=== PATIENT | female | born 1975 | race Caucasian/White ===

== ENCOUNTER 2018-12-21 08:24 | Observation (INO) | payer BC, OTHER ==
--- OUTSIDE RECORDS SUMMARY | 2018-12-21 08:28 | XMS REPORT | Clinical Summary ---
:1975 Author Organization [facility] Address [address] [place] [address] Care Team Providers Name Role Phone Osiel Ward MD Primary Care Provider Allergies Active Allergy Reactions Severity Noted Date Comments Penicillins Rash Low 06/23/2016 Medications Medication Sig Dispensed Refills Start Date End Date Status prasterone, dhea, Take 15 mg by 0 Active 25 mg capsule mouth. VITAMIN B COMPLEX Take by 0 Active ORAL mouth. famotidine (PEPCID) Take 1 tablet 60 tablet 3 06/01/2018 Active 40 MG tablet (40 mg total) by mouth 2 (two) times a day. pantoprazole Take 1 tablet 42 tablet 3 11/18/2018 12/30/2018 Active (PROTONIX) 40 MG EC (40 mg total) tablet by mouth daily for 42 days. thyroid, pork, Take 32.5 mg 0 11/15/2018 Discontinued (NATURE-THROID) by mouth 32.5 mg tablet daily. sodium,potassium,ma Take 1 Bottle 1 Bottle 0 10/18/2018 10/18/2018 g sulfates (SUPREP by mouth once BOWEL PREP KIT) for 1 dose. 17.5-3.13-1.6 gram recon soln Active Problems Problem Noted Date Gastroesophageal reflux disease without esophagitis 08/19/2017 Epigastric pain 08/19/2017 Swelling of both hands 06/23/2016 Encounter for long-term (current) use of non-steroidal anti-inflammatories 03/2016 ADD (attention deficit disorder) Encounters Date Type Specialty Care Team Description 11/30/2018 Telephone Gastroenterology Ottoniel Segura LVN 11/18/2018 Orders Only Gastroenterology Bari Corea MD 11/16/2018 Surgery Gastroenterology Bari Corea, EGD with cold forcep biopsies 11/16/2018 Anesthesia Event Gastroenterology [facility], Fuad Mcmanus MD 11/16/2018 Hospital Encounter Gastroenterology Bari Corea, Encounter for MD long-term (current) use of non-steroidal anti-inflammatories (Primary Dx) 10/18/2018 Orders Only Gastroenterology Ottoniel Segura LVN 10/18/2018 Telephone GastroenterBari Collins MD 10/06/2018 Telephone GastroenterBari Collins MD 09/27/2018 Telephone Gastroenterology Ottoniel Segura LVN 06/21/2018 Hospital Encounter Radiology Roney Mullen Breast ramesh Iyer MD 06/21/2018 Hospital Encounter Radiology Roney Mullen MD 06/01/2018 Office Visit Otolaryngology Shelley Sears Sore throat; MD Tez Localized swelling, mass and lump, head 04/13/2018 Transcribe Orders Access Roney Mullen MD (Primary Dx) after 12/20/2017 Family History Medical History Relation Name Comments Diabetes Father Hypercalcemia Mother Lupus Mother No Known Problems Sister Relation Name Status Comments Father Mother Alive Sister Alive Social History Tobacco Use Types Packs/Day Years Used Date Never Smoker Smokeless Tobacco: Never Used Alcohol Use Drinks/Week oz/Week Comments Yes social Sex Assigned at Date Recorded Not on file Job Start Date Occupation Industry Not on file Not on file Not on file Travel History Travel Start Travel End No recent travel history available. Last Filed Vital Signs Vital Sign Reading Time Taken Blood Pressure 117/72 11/16/2018 9:08 AM CDT Pulse 72 11/16/2018 9:08 AM CDT Temperature 36.8 C (98.2 F) 11/16/2018 9:08 AM CDT Respiratory Rate 18 11/16/2018 9:08 AM CDT Oxygen Saturation 98% 11/16/2018 9:08 AM CDT Inhaled Oxygen Concentration - - Weight 62.6 kg (138 lb) 06/01/2018 8:10 AM CDT Height 167.6 cm (5' 6") 06/01/2018 8:10 AM CDT Body Mass Index 22.27 06/01/2018 8:10 AM CDT Plan of Treatment Date Type Specialty Care Team Description 01/05/2019 Office Visit Gastroenterology Bari Corea MD [id number] [place] [address] Health Maintenance Due Date Last Done Comments CERVICAL CANCER SCREENING 1995 INFLUENZA VACCINE 03/16/2019 Procedures Procedure Name Priority Date/Time Associated Comments Diagnosis SURGICAL PATHOLOGY REQUEST Routine 11/16/2018 Results for 9:15 AM CDT this procedure are in the results section. COLONOSCOPY 11/16/2018 Colon cancer 8:00 AM CDT screening Gastric reflux ESOPHAGOGASTRODUODENOSCOPY (EGD) 11/16/2018 Colon cancer 8:00 AM CDT screening Gastric reflux US BREAST COMPLETE BILATERAL Routine 06/21/2018 Breast density Results for 11:08 AM MARBLE CARVER this procedure are in the results section. MAMMO BREAST DIAGNOSTIC Routine 06/21/2018 Breast density Results for TOMOSYNTHESIS BILATERAL 10:23 AM MARBLE CARVER this procedure are in the results section. after 12/20/2017 Results Surgical pathology request (11/16/2018 9:15 AM CDT) [facility] DEPARTMENT OF PATHOLOGY AND GENOMIC MEDICINE Surgical pathology report See link below for PDF [facility] DEPARTMENT OF Lab Report PATHOLOGY AND GENOMIC MEDICINE Result status This is Final Report [facility] DEPARTMENT OF for [id number] PATHOLOGY AND GENOMIC MEDICINE Performing Organization Address City/State/Zipcode Phone Number [facility] DEPARTMENT OF PATHOLOGY AND [address] [place] [address] GENOMIC MEDICINE US Breast Complete Bilateral (06/21/2018 11:08 AM MARBLE CARVER) Narrative Performed At PROCEDURE: MAMMO BREAST DIAGNOSTIC TOMOSYNTHESIS BILATERAL, US BREAST HM RADIANT COMPLETE BILATERAL Bilateral real-time whole breast sonography included all four quadrants and the retroareolar regions under close supervision by the radiologist. Computer aided detection with tomosynthesis was utilized for the interpretation. HISTORY:43-year-old female with fibrocystic breast presenting for annual evaluation. She has a history of a benign breast biopsy. COMPARISON: 06/22/2017-06/21/2014. DENSITY: There are scattered areas of fibroglandular density. MAMMOGRAM: Bilateral subpectoral saline implants are present and they obscure portions of the breast parenchyma. There are bilateral benign calcifications in both breasts. Bilateral obscured masses of variable sizes are also noted and likely represent multiple cysts. No significant asymmetry or architectural distortion is identified in either breast. ULTRASOUND: There are scattered anechoic masses of variable sizes in both breasts which are all in keeping with fibrocystic changes. No suspicious mass or acoustic abnormality is identified in either breast. IMPRESSION:No mammographic or sonographic evidence of malignancy. RECOMMENDATION: Correlation with physical exam and annual mammography. BI-RADS 2: BENIGN DWS01 Performing Organization Address [facility] Phone Number [facility] [address] [place] [address] Mammo Breast Diagnostic Tomosynthesis Bilateral (06/21/2018 10:23 AM MARBLE CARVER) Narrative Performed At PROCEDURE: MAMMO BREAST DIAGNOSTIC TOMOSYNTHESIS BILATERAL, US BREAST RADIANT COMPLETE BILATERAL Bilateral real-time whole breast sonography included all four quadrants and the retroareolar regions under close supervision by the radiologist. Computer aided detection with tomosynthesis was utilized for the interpretation. HISTORY:43-year-old female with fibrocystic breast presenting for annual evaluation. She has a history of a benign breast biopsy. COMPARISON: 06/22/2017-06/21/2014. DENSITY: There are scattered areas of fibroglandular density. MAMMOGRAM: Bilateral subpectoral saline implants are present and they obscure portions of the breast parenchyma. There are bilateral benign calcifications in both breasts. Bilateral obscured masses of variable sizes are also noted and likely represent multiple cysts. No significant asymmetry or architectural distortion is identified in either breast. ULTRASOUND: There are scattered anechoic masses of variable sizes in both breasts which are all in keeping with fibrocystic changes. No suspicious mass or acoustic abnormality is identified in either breast. IMPRESSION:No mammographic or sonographic evidence of malignancy. RECOMMENDATION: Correlation with physical exam and annual mammography. BI-RADS 2: BENIGN DWS01 Performing Organization Address [facility] Phone Number [facility] [address] [place] [address] after 12/20/2017 Insurance Payer Benefit Plan / Group Subscriber ID Type Phone Address [employer] ALLIED/[employer] SIG ADMIN xxxxxxxxx PPO Advance Directives Patient has advance care planning documents on file. For more information, please contact:Alessio Aguilera[address] [place] [address]
[2018-12-21] MEDS ORDERED: ONDANSETRON 4 MG/2 ML VIAL ONE ×2 (09:01→14:21)
[2018-12-21] MEDS ORDERED: MORPHINE 4 MG/ML SYR ONE (09:01)
[2018-12-21] MEDS ORDERED: FAMOTIDINE 20 MG/2 ML VIAL IV ONE (09:02)
[2018-12-21] MEDS ORDERED: NA CHLORIDE 0.9% 1,000 ML ONE (09:02)
[2018-12-21 09:26] LABS: Absolute Lymphocytes (CBC) 2.5 K/uL (0.7-4.9); Absolute Monocytes 0.5 K/uL (0.1-1.3); Absolute Neutrophil 2.3 K/uL (1.8-8.0); Basophils % 1.2 % (0-1.3); Eosinophils % 5.3 % (0-4.4); Hematocrit 42.3 % (36.0-45.0); Lymphocytes % 44.2 % (15.3-44.8); MPV 8.1 fL (7.6-11.3); Monocytes % 8.4 % (3.3-12.3); RBC Red Blood Cell Count 4.65 M/uL (3.86-4.86)
[2018-12-21 09:43] LABS: Bilirubin Direct 0.1 mg/dL (0-0.2); Bilirubin Total 0.4 mg/dL (0.2-1.0); Protein, Total 7.3 g/dL (6.4-8.2)
[2018-12-21] MEDS ORDERED: HYDROMORPHONE HCL 1 MG/ML INJ ONE ×2 (09:43→11:09)
[2018-12-21] MEDS ORDERED: PROMETHAZINE 25 MG/ML VIAL ONE (09:43)
[2018-12-21 10:07] LABS: Blood Morphology Comment NOT SEEN (NOT SEEN); Platelet Estimate ADEQ
--- NOTE | 2018-12-21 11:20 | RAD REPORT ---
EXAM DESCRIPTION: RAD - Chest Single View - 12/21/2018 11:10 am CLINICAL HISTORY: Abdominal pain, epigastric pain COMPARISON: None. TECHNIQUE: AP portable chest image was obtained 1108 hours . FINDINGS: Lungs are clear. Heart and vasculature are normal. No measurable pleural effusion and no p neumothorax. No acute bony abnormality seen. No acute aortic finding. No free air under the diaphragm . IMPRESSION: No acute cardiopulmonary process.
[2018-12-21] MEDS ORDERED: PROPOFOL 200 MG/20 ML VIAL IV ONE (12:07)
[2018-12-21] MEDS ORDERED: LIDOCAINE 1% MPF 2 ML AMPULE ONE (12:07)
[2018-12-21] MEDS ORDERED: Ringers Lactate 1,000 ML IV ONE (12:10)
--- NOTE | 2018-12-21 12:53 | ENDO RPT ---
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 pylori MEDICATIONS: Per Anesthesia. TOPICAL ANESTHETIC: none CONSENT: The patient understands the risks and benefits of the procedure and understands that these risks include, but are not limited to: sedation, allergic reaction, infection, perforation and/or bleeding. Alternative means of evaluation and treatment include, among others: physical exam, x-rays, and/or surgical intervention. The patient elects to proceed with this endoscopic procedure. DESCRIPTION OF PROCEDURE: During intra-op preparation period all mechanical medical equipment was checked for proper function. Hand hygiene and appropriate measures for infection prevention was taken. Procedure, possible complications, and alternatives including but not limited to the possibility of bleeding, perforation, tear, infection, sepsis, need for surgery, need for blood transfusion, and anesthesia related complications were explained to the patient. After the risks, benefits and alternatives of the procedure were thoroughly explained, Informed consent was verified, confirmed and timeout was successfully executed by the treatment team. The patient was placed in the left lateral position. The patient was anesthetized with topical anesthesia. Through the anesthetized oropharyngeal area, the scope was passed without any difficulty. The [id number] ([id number]) endoscope was introduced through the mouth and advanced to the third portion of the duodenum. Retroflexed views revealed sessile polyp(s). The gastroscope was then slowly withdrawn and removed. There was diffuse mild gastritis noted over the enitre stomach, most severe at the pylorus. Additionally an erosion was found at the pylorus. A biopsy for H. pylori was taken from multiple areas of the stomach including the pylorus, body, fundus of the stomach, as well as several duodenal biopsies from the bulb and second portions of the duodenum. Bile reflux was found in the total stomach. Eosinophilic esophagitis was also noted. A sessile polyp was found in the fundus of the stomach it was a bile-covered fleshy polyp and was removed and sent for pathology. ADVERSE EVENTS: There were no complications. IMPRESSIONS: 1. An erosion was found at the pylorus 2. Bile reflux was found in the total stomach 3. Eosinophilic esophagitis 4. A sessile polyp was found in the fundus RECOMMENDATIONS: 1. acid suppression therapy, Omeprazole 40mg PO BID 2. anti-reflux regimen - GERD handout given 3. await biopsy results 4. avoid NSAIDS 5. follow-up: office 2 week(s) 6. admit to hospital 7. CT scan 8. follow-up of helicobacter pylori status, treat if indicated REPEAT EXAM: Return in 1 year(s) for EGD. Pending Biopsy Christiano Roberts DR eSigned: Christiano Roberts DR 12/21/2018 12:52 PM cc: CPT CODES: ICD9 CODES: PATIENT NAME: Chante Elder MR#: [id number]
[2018-12-21] MEDS ORDERED: SODIUM CHLORIDE 0.9% 10ML INJ IV PRN ×2 (13:09→22:04)
[2018-12-21] MEDS ORDERED: HYDROMORPHONE HCL 1 MG/ML INJ IV PRN ×2 (13:09→15:26)
[2018-12-21] MEDS ORDERED: ONDANSETRON 4 MG/2 ML VIAL IV PRN ×2 (13:09→15:26)
[2018-12-21 13:11] LABS: Urine Blood NEGATIVE (NEG); Urine Glucose NEGATIVE (NEG); Urine Protein NEGATIVE (NEG); Urine pH 5.5 (5.0-7.0)
--- NOTE | 2018-12-21 13:11 | ER ---
Nurse's Notes [facility] Name: Chante Elder Age: 43 yrs Sex: Female : 1975 Arrival Date: 12/21/2018 Time: 08:26 Bed 13 Private MD: Diagnosis: Abdominal and pelvic pain;Gastritis, unspecified Presentation: 12/21 08:36 Presenting complaint: Patient states: Epigastric pain that began Wednesday, also reports ph nausea, denies V/D or fever, gallbladder removed in 2012. Transition of care: patient was not received from another setting of care. Onset of symptoms was December 21, 2018. Risk Assessment: Do you want to hurt yourself or someone else? Patient reports no desire to harm self or others. Initial Sepsis Screen: Does the patient meet any 2 criteria? No. Patient's initial sepsis screen is negative. Does the patient have a suspected source of infection? No. Patient's initial sepsis screen is negative. Care prior to arrival: None. 08:36 Method Of Arrival: Ambulatory ph 08:36 Acuity: KEYONNA 3 ph COLLATERAL ANALYST: 08:40 LMP 12/07/2018 ph Historical: - Allergies: 08:39 PENICILLINS; ph 08:39 Adhesives; ph - Home Meds: 08:39 pantoprazole oral oral [Active]; ph - PSHx: 08:39 Cholecystectomy; Hernia repair; ph - Immunization history:: Adult Immunizations unknown. - Social history:: Smoking status: Patient/guardian denies using tobacco. - Ebola Screening: : No symptoms or risks identified at this time. Screenin:41 Abuse screen: Denies threats or abuse. Denies injuries from another. Nutritional ph screening: No deficits noted. Tuberculosis screening: No symptoms or risk factors identified. Fall Risk None identified. Assessment: 09:15 General: Appears in no apparent distress. uncomfortable, slender, well groomed, ph Behavior is calm, cooperative, appropriate for age, Denies fever. Pain: Complains of pain in abdomen Pain currently is 10 out of 10 on a pain scale. Quality of pain is described as squeezing, Pain began 2-3 days ago. Noted to be grimacing, guarding. Neuro: Level of Consciousness is awake, alert, obeys commands, Oriented to person, place, time, situation. Cardiovascular: Capillary refill < 3 seconds in bilateral fingers Patient's skin is warm and dry. Respiratory: Airway is patent Respiratory effort is even, unlabored, Respiratory pattern is regular, symmetrical. 09:15 GI: Abdomen is flat, non-distended, Bowel sounds present X 4 quads. Abd is soft X 4 ph quads Abdomen is tender to palpation in right lower quadrant Reports lower abdominal pain, upper abdominal pain, epigastric pain, nausea, Patient currently denies bloody stool, constipation, diarrhea, vomiting. : No signs and/or symptoms were reported regarding the genitourinary system. Derm: Skin is intact, is healthy with good turgor, Skin is pink, warm \T\ dry. Musculoskeletal: Circulation, motion, and sensation intact. Range of motion: intact in all extremities. 09:44 Reassessment: Patient appears in no apparent distress at this time. Patient and/or ph family updated on plan of care and expected duration. Pain level reassessed. Patient is alert, oriented x 3, equal unlabored respirations, skin warm/dry/pink. Pt reports that pain and nausea have not improved, ERP notified, see Dr Armando KITCHEN at bedside to speak w/ pt. 10:00 Reassessment: Patient reports that her pain has improved since administration of aj1 Dilaudid. Patient was instructed to notify staff if her pain returns. 10:15 Reassessment: Dr. Roberts at bedside. aj1 11:00 Reassessment: Patient states that her pain is getting worse, notified Dr. Styles, aj1 order received. 11:05 Reassessment: Patient transported to X-Ray via wheelchair. aj1 11:15 Reassessment: Patient returned to room. aj1 11:23 Reassessment: Spoke with nurse from Endoscopy, states they will be coming in aj1 approximately 10 minutes to get patient. Patient was instructed to change into hospital gown as preparation for endoscopy. 11:40 Reassessment: Patient transported to endoscopy via wheelchair per Dr. Styles patient aj1 may be brought back to ER following endoscopy, will continue to hold room 13 for patient. 14:12 Reassessment: Pt to stay in day surgery as bed has been assigned of 230. House ss Machine Bookkeeper, and Day Surgery staff notified. Vital Signs: 08:40 Weight 64.86 kg; Height 5 ft. 6 in. (167.64 cm); Pain 10/10; ph 08:46 BP 124 / 86; Pulse 66; Resp 18; Temp 98.3; Pulse Ox 97% on R/A; ph 09:18 BP 122 / 84; Pulse 69; Resp 18; Pulse Ox 100% on R/A; ph 10:52 BP 116 / 77; Pulse 58; Resp 12; Temp 98.0(O); Pulse Ox 98% ; mh5 11:30 BP 116 / 65; Pulse 68; Resp 18; Pulse Ox 100% ; aj1 08:40 Body Mass Index 23.08 (64.86 kg, 167.64 cm) ph ED Course: 08:26 Patient arrived in ED. as 08:31 Aspen Smart, MARY is Primary Nurse. ph 08:33 Marty Styles MD is Attending Physician. kdr 08:38 Triage completed. ph 08:41 Arm band placed on. ph 08:41 Patient has correct armband on for positive identification. Placed in gown. Bed in low ph position. Call light in reach. Side rails up X 1. Pulse ox on. NIBP on. Door closed. Noise minimized. Warm blanket given. Pillow given. 09:00 Initial lab(s) drawn, by me, sent to lab. Inserted saline lock: 22 gauge in right ph antecubital area, using aseptic technique. Blood collected. 10:31 Radiology exam delayed due to on hold. pt going to endo first and may or may noit get sj the scan. 11:09 CXR XRAY In Process Unspecified. EDMS 13:10 Christiano Roberts MD is Hospitalizing Provider. kdr Administered Medications: 09:05 Drug: NS 0.9% 1000 ml Route: IV; Rate: 1 bolus; Site: right antecubital; ph 09:05 Drug: Zofran 4 mg Route: IVP; Site: right antecubital; ph 09:43 Follow up: Response: No adverse reaction; Nausea unchanged ph 09:07 Drug: morphine 4 mg Route: IVP; Site: right antecubital; ph 09:43 Follow up: Response: No adverse reaction; Pain is unchanged, physician notified ph 09:08 Drug: Pepcid 20 mg Route: IVP; Site: right antecubital; ph 09:44 Follow up: Response: No adverse reaction ph 09:40 Drug: Phenergan 12.5 mg Route: IVP; Site: right antecubital; ph 10:15 Follow up: Response: No adverse reaction; Nausea is decreased ph 09:43 Drug: Dilaudid 1 mg Route: IVP; Site: right antecubital; ph 10:15 Follow up: Response: No adverse reaction; Pain is decreased ph 10:59 Drug: Dilaudid 1 mg Route: IVP; Site: right antecubital; aj1 Outcome: 13:11 Decision to Hospitalize by Provider. kdr 14:12 Patient left the ED. ss Signatures: Dispatcher [employer] EDAminah Mcallister RN RN aj1 Marty Styles MD MD kdr Jones, Susan sj Martinez, Amelia as Smirch, Shelby, RN RN Aspen Smart RN RN [address] [phone]
--- NOTE | 2018-12-21 13:12 | EDPHYS ---
Physician Documentation [facility] Name: Chante Elder Age: 43 yrs Sex: Female : 1975 Arrival Date: 12/21/2018 Time: 08:26 Bed 13 Private MD: ED Physician Marty Styles HPI: 12/21 08:44 This 43 yrs old Female presents to ER via Ambulatory with complaints of kdr Abdominal Pain. 08:44 The patient presents with abdominal pain that is diffuse, subjectively epigastric, kdr objectively RLQ abdominal distention in the lower abdomen. Onset: The symptoms/episode began/occurred Wednesday. The symptoms radiate to The patient states that she feels like the pain radiates from under her umbilicus to both flanks/CVA area. Associated signs and symptoms: Pertinent positives: nausea, Pertinent negatives: chest pain, constipation, diarrhea, headache, hematuria, palpitations, shortness of breath, vaginal discharge. The symptoms are described as achy, intermittent, vague, waxing/waning. Modifying factors: The symptoms are alleviated by nothing, Sitting up feel better or laying on her side. the symptoms are aggravated by movement. Severity of pain: At its worst the pain was moderate in the emergency department the pain is unchanged. The patient has not experienced similar symptoms in the past, Had her GB out about a year ago and but she does not recall if her pain was like this prior to GB removal. 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 - Social history:: Smoking status: Patient/guardian denies using tobacco. - Ebola Screening: : No symptoms or risks identified at this time. ROS: 08:44 Constitutional: Negative for fever, chills, and weight loss, Eyes: Negative for injury, kdr pain, redness, and discharge, Neck: Negative for injury, pain, and swelling, Cardiovascular: Negative for chest pain, palpitations, and edema, Respiratory: Negative for shortness of breath, cough, wheezing, and pleuritic chest pain, Back: Negative for injury and pain, : Negative for injury, bleeding, discharge, and swelling, MS/Extremity: Negative for injury and deformity, Skin: Negative for injury, rash, and discoloration, Neuro: Negative for headache, weakness, numbness, tingling, and seizure activity. Psych: Negative for depression, anxiety, suicide ideation, homicidal ideation, and hallucinations, Allergy/Immunology: Negative for hives, rash, and allergies, Endocrine: Negative for neck swelling, polydipsia, polyuria, polyphagia, and marked weight changes, Hematologic/Lymphatic: Negative for swollen nodes, abnormal bleeding, and unusual bruising. 08:44 Abdomen/GI: Positive for abdominal pain, nausea, abdominal distension, Subjective distention in her lower abdomen, Negative for constipation, abdominal cramps, black/tarry stool, rectal pain, rectal bleeding, bowel incontinence. Exam: 08:44 Constitutional: This is a well developed, well nourished patient who is awake, alert, kdr and in no acute distress. Head/Face: Normocephalic, atraumatic. Eyes: Pupils equal round and reactive to light, extra-ocular motions intact. Lids and lashes normal. Conjunctiva and sclera are non-icteric and not injected. Cornea within normal limits. Periorbital areas with no swelling, redness, or edema. Neck: Trachea midline, no thyromegaly or masses palpated, and no cervical lymphadenopathy. Supple, full range of motion without nuchal rigidity, or vertebral point tenderness. No Meningismus. Chest/axilla: Normal chest wall appearance and motion. Nontender with no deformity. No lesions are appreciated. Cardiovascular: Regular rate and rhythm with a normal S1 and S2. No gallops, murmurs, or rubs. Normal PMI, no JVD. No pulse deficits. Respiratory: Lungs have equal breath sounds bilaterally, clear to auscultation and percussion. No rales, rhonchi or wheezes noted. No increased work of breathing, no retractions or nasal flaring. Back: No spinal tenderness. No costovertebral tenderness. Full range of motion. Skin: Warm, dry with normal turgor. Normal color with no rashes, no lesions, and no evidence of cellulitis. MS/ Extremity: Pulses equal, no cyanosis. Neurovascular intact. Full, normal range of motion. Neuro: Awake and alert, GCS 15, oriented to person, place, time, and situation. Cranial nerves II-XII grossly intact. Motor strength 5/5 in all extremities. Sensory grossly intact. Cerebellar exam normal. Normal gait. Psych: Awake, alert, with orientation to person, place and time. Behavior, mood, and affect are within normal limits. 08:44 Abdomen/GI: Inspection: abdomen appears normal, Bowel sounds: normal, Palpation: soft, mild abdominal tenderness, in the right lower quadrant, diffusely tender but worse with palpation to RLQ. Vital Signs: 08:40 Weight 64.86 kg; Height 5 ft. 6 in. (167.64 cm); Pain 10/10; ph 08:46 BP 124 / 86; Pulse 66; Resp 18; Temp 98.3; Pulse Ox 97% on R/A; ph 09:18 BP 122 / 84; Pulse 69; Resp 18; Pulse Ox 100% on R/A; ph 10:52 BP 116 / 77; Pulse 58; Resp 12; Temp 98.0(O); Pulse Ox 98% ; mh5 11:30 BP 116 / 65; Pulse 68; Resp 18; Pulse Ox 100% ; aj1 08:40 Body Mass Index 23.08 (64.86 kg, 167.64 cm) ph MDM: 08:44 Data reviewed: vital signs, nurses notes, lab test result(s), radiologic studies. kdr Counseling: I had a detailed discussion with the patient and/or guardian regarding: the historical points, exam findings, and any diagnostic results supporting the discharge/admit diagnosis, lab results, radiology results. 13:11 Patient medically screened. kdr 12/21 08:43 Order name: Basic Metabolic Panel kdr 12/21 08:43 Order name: CBC with Diff; Complete Time: 10:38 kdr 12/21 08:43 Order name: Creatinine for Radiology; Complete Time: 10:05 kdr 12/21 08:43 Order name: Hepatic Function; Complete Time: 10:05 kdr 12/21 08:43 Order name: Lipase; Complete Time: 10:05 kdr 12/21 08:44 Order name: Basic Metabolic Panel; Complete Time: 10:05 EDMS 12/21 08:43 Order name: CT Abd/Pelvis - W/Contrast kdr 12/21 10:07 Order name: Manual Differential; Complete Time: 10:38 EDMS 12/21 10:12 Order name: CXR XRAY bd 12/21 10:31 Order name: Urine Dipstick--Ancillary (enter results) bd 12/21 10:31 Order name: Urine --Ancillary (enter results) bd 12/21 08:43 Order name: IV Saline Lock; Complete Time: 09:14 kdr 12/21 08:43 Order name: Labs collected and sent; Complete Time: 09:14 kdr 12/21 13:14 Order name: Clear Liquid EDMS Administered Medications: 09:05 Drug: NS 0.9% 1000 ml Route: IV; Rate: 1 bolus; Site: right antecubital; ph 09:05 Drug: Zofran 4 mg Route: IVP; Site: right antecubital; ph 09:43 Follow up: Response: No adverse reaction; Nausea unchanged ph 09:07 Drug: morphine 4 mg Route: IVP; Site: right antecubital; ph 09:43 Follow up: Response: No adverse reaction; Pain is unchanged, physician notified ph 09:08 Drug: Pepcid 20 mg Route: IVP; Site: right antecubital; ph 09:44 Follow up: Response: No adverse reaction ph 09:40 Drug: Phenergan 12.5 mg Route: IVP; Site: right antecubital; ph 10:15 Follow up: Response: No adverse reaction; Nausea is decreased ph 09:43 Drug: Dilaudid 1 mg Route: IVP; Site: right antecubital; ph 10:15 Follow up: Response: No adverse reaction; Pain is decreased ph 10:59 Drug: Dilaudid 1 mg Route: IVP; Site: right antecubital; aj1 Disposition: 12/21/18 13:11 Hospitalization ordered by Christiano Roberts for Observation. Preliminary diagnosis are Abdominal and pelvic pain, Gastritis, unspecified. - Bed requested for Telemetry/MedSurg (observation). - Status is Observation. ss - Condition is Fair. - Problem is new. - Symptoms have improved. UTI on Admission? No Signatures: Dispatcher [employer] EDMS Aminah Jeronimo RN RN aj1 Marty Styles MD MD kdr Smirch, Shelby, RN RN ss Aspen Smart RN RN ph Corrections: (The following items were deleted from the chart) 13:48 13:11 Hospitalization Ordered by Christiano Roberts MD for Observation. Preliminary diagnosis ss is Abdominal and pelvic pain; Gastritis, unspecified. Bed requested for Telemetry/MedSurg (observation). Status is Observation. Condition is Fair. Problem is new. Symptoms have improved. UTI on Admission? No. kdr 14:12 13:48 12/21/2018 13:11 Hospitalization Ordered by Christiano Roberts MD for Observation. ss Preliminary diagnosis is Abdominal and pelvic pain; Gastritis, unspecified. Bed requested for Telemetry/MedSurg (observation). Status is Observation. Condition is Fair. Problem is new. Symptoms have improved. UTI on Admission? No. ss
[2018-12-21] MEDS ORDERED: MEPERIDINE HCL 25 MG/0.5 ML ONE ×2 (13:29→14:16)
[2018-12-21] MEDS ORDERED: Ringers Lactate 1,000 ML IV SCH (14:00)
--- NOTE | 2018-12-21 14:51 | RAD REPORT ---
EXAM DESCRIPTION: CT - Abdomen Pelvis W Contrast - 12/21/2018 2:35 pm CLINICAL HISTORY: Abdominal pain. COMPARISON: 2015 TECHNIQUE: Computed axial tomography of the abdomen and pelvis was obtained. 100 cc Isovue-300 is ad ministered intravenously. Oral contrast was given. All CT scans are performed using dose optimization technique as appropriate and may include automated exposure control or mA/KV adjustment according to patient size. FINDINGS: The liver, spleen, pancreas, adrenals and kidneys appear unremarkable. Borderline dilatation of several loops of jejunum. . There is no evidence of diverticulitis Swirling of the mesenteric vessels has developed since 2015. There is stranding within the adjacent m esenteric fat. IMPRESSION: Swirling of the mesenteric vessels with stranding within the adjacent fat. This is a no nspecific finding but can be seen with a volvulus. There is borderline dilatation of small bowel loop s with small amount of ascites
[2018-12-21 15:04] VITALS: BMI 24.0
[2018-12-21] MEDS ORDERED: ENOXAPARIN 40 MG/0.4 ML SQ ONE (15:31)
[2018-12-21] MEDS: Ringers Lactate 1,000 ML IV SCH (15:43)
[2018-12-21] MEDS ORDERED: HYDROMORPHONE HCL 2 MG/ML inj IV PRN (17:58)
[2018-12-21] MEDS: HYDROMORPHONE HCL 2 MG/ML inj IV PRN (18:21)
[2018-12-21] MEDS ORDERED: PANTOPRAZOLE 40 MG INJ IVP SCH (21:00)
--- NOTE | 2018-12-21 21:49 | HP ---
Date of Admission: 12/21/2018 Brief History Of Present Illness: The patient is a 43-year-old female known to me from previous cholecystectomy approximately 4 years ago, who presents to the hospital with a 2-3 day history of epigastric abdominal pain. She states it was typically after 1 hour after meals, which has been getting progressively worse over the course of the past 3-4 days. It was initially intermittent and postprandial as described. It was sharp, stabbing with radiation through to the back and a boring type sensation. It was associated with nausea, vomiting on occasion, but no change in bowel or bladder habits. She has had decreased output of stool; however, she continues to have normal bowel movements. She has noted some bloating in her abdomen following this and the pain now got significant to almost an 8-10/10 in the epigastric region. She has had no fever , chills. She noted that she does not take any NSAIDs [id number] except ibuprofen intermittently. She drinks very sparsely when it comes to alcohol consumption. She does drink carbonated liquids every day in high volume, typically a mineral water type drink. Past Medical History: B vitamin deficiency. Past Surgical History: She has had 2 umbilical hernia repairs, laparoscopic cholecystectomy, laparoscopic appendectomy and a uterine ablation. Allergies: TO PENICILLIN AND ADHESIVES. Home Medications: Include PPI. Endoscopic History: The patient has had an EGD on 11/16 of this year, which showed gastritis and gastric erosions as well as eosinophilic esophagitis. She was placed on a PPI 40 mg p.o. daily of omeprazole, which she has been taking for the most part, but had not taken it on occasion. She states the H. pylori test was negative at that time. She also had a colonoscopy performed as well due to change in bowel habit. Review of Systems: A 10-point review of systems other than HPI, denies. Physical Examination: General: At the time of my examination, she is awake, alert, and oriented. Psychiatric: She is appropriate, conversive. HEENT: She is normocephalic. Sclerae anicteric. Mucous membranes are moist. Oropharynx clear. Neck: Supple. No JVD. Chest: Normal expansion and excursion. Cardiovascular: Regular rhythm. Pulmonary: Clear to auscultation bilaterally. Abdomen: Soft with positive epigastric tenderness to palpation. No rebound. No guarding. No focal peritonitis. She has global tenderness to palpation, worse in the epigastrium in the left lower quadrant. Well-healed scars are evident. No hernias appreciated. Extremities: No clubbing, cyanosis, or edema. Skin: Warm and dry. Laboratory Data: White blood cell count of 5.6, hemoglobin is 14.2, hematocrit of 42.3, platelet count is 271, neutrophils 40%. Her sodium 142, potassium 4.0 , chloride 110, carbon dioxide 25, BUN 21, creatinine 0.7, glucose is 101, calcium is 8.9. Total bilirubin 0.4, direct component 0.1, AST 16, ALT 23, alkaline phosphatase is 45, lipase is 140. UA is currently pending. She has not had imaging performed. Assessment And Plan: This is a 43-year-old female, who comes in with significant epigastric abdominal pain. 1. Intravenous fluid hydration. 2. I have explained the risks, benefits, and alternatives of repeat esophagogastroduodenoscopy including but not limited to bleeding, infection, damage to surrounding tissues, perforation, need for further operation and procedures. The patient agrees to proceed as indicated. 3. Will obtain CT scan of abdomen and pelvis if EGD does not give definitive diagnosis. MANUEL/GALEN Voice ID: [id number] MTDD
[2018-12-21] MEDS: PANTOPRAZOLE 40 MG INJ IVP SCH (22:40)
[2018-12-22] MEDS ORDERED: PROMETHAZINE 25 MG/ML VIAL IV PRN (00:19)
[2018-12-22] MEDS: HYDROMORPHONE HCL 2 MG/ML inj IV PRN (00:57)
[2018-12-22] MEDS: Ringers Lactate 1,000 ML IV SCH ×3 (01:01→16:00)
[2018-12-22 01:46] VITALS: O2SAT 96
[2018-12-22 05:50] LABS: Absolute Lymphocytes (CBC) 1.5 K/uL (0.7-4.9); Absolute Monocytes 0.3 K/uL (0.1-1.3); Absolute Neutrophil 6.5 K/uL (1.8-8.0); Basophils % 0.5 % (0-1.3); Eosinophils % 0.1 % (0-4.4); Hematocrit 35.6 % (36.0-45.0); Lymphocytes % 17.8 % (15.3-44.8); MPV 8.1 fL (7.6-11.3); Monocytes % 4.1 % (3.3-12.3); RBC Red Blood Cell Count 3.95 M/uL (3.86-4.86)
[2018-12-22 05:52] LABS: Protime INR 1.08
[2018-12-22 06:03] LABS: ALT/SGPT 19 U/L (12-78); AST/SGOT 12 U/L (15-37); Albumin 3.3 g/dL (3.4-5.0); Alkaline Phosphatase 34 U/L (45-117); BUN Blood Urea Nitrogen 13 mg/dL (7-18); Bicarbonate 26 mmol/L (21-32); Bilirubin Total 0.4 mg/dL (0.2-1.0); C-Reactive Protein < 2.90 mg/L (<3.00); Glucose Level 103 mg/dL (74-106); Potassium 3.9 mmol/L (3.5-5.1); Sodium Level 141 mmol/L (136-145)
[2018-12-22] MEDS ORDERED: Levofloxacin500mg IV 500 MG/100 ML BAG IV SCH (08:00)
--- NOTE | 2018-12-22 08:04 | P.PN ---
Subjective Date of Service: 12/22/18 Subjective: Improving (Patient has less pain, less bloating, had significant nausea and emesis last evening, but now resolved.) Physical Examination - Vital Signs Temperature: 98.2 F Blood Pressure: 148/88 Pulse: 81 Respirations: 12 Pulse Ox (%): 95 - Physical Exam General: Alert, In no apparent distress, Cooperative Respiratory: Normal air movement Gastrointestinal: Non-distended, No ascites, No masses, No rebound, No guarding , Other (soft, mild suprapubic TTP, ND, no peritoneal signs) - Studies Laboratory Data (last 24 hrs) 12/21/18 09:00: Creatinine 0.73 12/21/18 09:00: WBC 5.6, Hgb 14.2, Hct 42.3, Plt Count 271 12/21/18 09:00: Sodium 142, Potassium 4.0, BUN 21 H, Creatinine 0.75, Glucose 101, Total Bilirubin 0.4, AST 16, ALT 23, Alkaline Phosphatase 45, Lipase 140 Assessment And Plan - Current Problems (Diagnosis) (1) Partial small bowel obstruction Current Visit: Yes Status: Acute Plan: - Continue current pain regime - neutrophilia - will add dose of levaquin and flagyl - KUB shows movement of contrast to colon - continue serial exams - will start PO likley later today
--- NOTE | 2018-12-22 08:05 | RAD REPORT ---
EXAM DESCRIPTION: RAD - Abdomen 1 View (KUB) - 12/22/2018 7:45 am CLINICAL HISTORY: Abdominal pain, possible small bowel obstruction COMPARISON: CT study December 21 FINDINGS: Oral CT contrast is distributed throughout the colon from cecum to the descending colon. T his indicates the small bowel abnormalities on the CT study do not obstruct the flow of contrast. Prominent but nondilated small bowel loops are identified in this examination. No free air or pneumat osis. No extravasation of contrast. Phleboliths are present. No significant bony findings IMPRESSION: Oral contrast has reached the colon indicating no complete obstruction. No free air, pneumatosis or extravasation of contrast.
[2018-12-22] MEDS: PANTOPRAZOLE 40 MG INJ IVP SCH (08:42)
[2018-12-22] MEDS: METRONIDAZOLE 500mg IVPB 500 MG/100 ML BAG IV SCH ×2 (08:42→16:52)
[2018-12-22] MEDS ORDERED: ENOXAPARIN 40 MG/0.4 ML SQ SCH (09:00)
[2018-12-22 17:04] VITALS: BP 109/58; TEMP 99.2
== END 2018-12-22 19:31 | disposition home or self-care (01) ==
LOC: ER 08:24 → 2ND 13:14
PROVIDERS: ADMIT Surgery; ATTEND Surgery
PROC: 0DB78ZX Excision of Stomach, Pylorus, Via Natural or Artificial Opening Endoscopic, Diagnostic (ICD-10-PCS; principal; 2018-12-21 11:30)
DX: K25.9 Gastric ulcer, unspecified as acute or chronic, without hemorrhage or perforation (principal); K29.70 Gastritis, unspecified, without bleeding; K31.7 Polyp of stomach and duodenum; K20.0 Eosinophilic esophagitis
CPT/HCPCS: 36415; 71045; 74018; 74177; 80048; 80053; 80076; 81003; 81025; 83605; 83690; 84145; 85025; 85610; 86140; 88305; 88312; 96365; 96367; 96374; 96375; 99284; C9113; G0378; J1170; J1650; J2001; J2175; J2405; J2550; J2704; J7030; Q9967